=== PATIENT | female | born 1955 | race Caucasian/White ===

== ENCOUNTER 2019-04-06 08:25 | Inpatient (IN) | payer OTHER ==
[~2019-04-06] VITALS: Ht 167.6 cm; Wt 131.5 kg
[2019-04-06 09:06] LABS: Alanine Aminotransfer (ALT/SGP 15 U/L (12-78); Albumin, Blood 3.3 g/dL (3.4-5.0); Albumin/Globulin Ratio 0.9 (0.8-1.8); Alk Phos 121 U/L (50-136); Anion Gap 10 mmol/L (6-16); Aspartate Aminotrans (AST/SGOT 7 U/L (12-37); Bilirubin, Total 0.4 mg/dL (0.1-1.0); Blood Urea Nitrogen 20 mg/dL (8-24); Bun/Creatinine Ratio 20.5 (12.0-20.0); CO2, Blood 25 mmol/L (21-32); Calcium, Blood 8.7 mg/dL (8.5-10.1); Chloride, Blood 104 mmol/L (98-108); Creatinine, Blood 0.98 mg/dL (0.40-1.00); Globulin, Blood 3.7 g/dL (2.2-4.0); Glomerular Filtration Rate >60 (60-); Glucose, Blood 171 mg/dL (70-99); Potassium, Blood 4.1 mmol/L (3.5-5.5); Sodium, Blood 139 mmol/L (136-145); Troponin I 0.057 ng/mL (0.000-0.040)
[2019-04-06 09:07] LABS: BASOPHILS ABSOLUTE AUTO 0.03 K/mm3 (0.00-0.23); BASOPHILS PERCENT AUTO 0 % (0-2); EOSINOPHILS ABSOLUTE AUTO 0.22 K/mm3 (0.00-0.68); EOSINOPHILS PERCENT AUTO 2 % (0-6); Hematocrit 47.4 % (33.0-51.0); Hemoglobin 14.9 g/dL (11.5-16.0); IMMATURE GRAN ABSOLUTE AUTO 0.05 K/mm3 (0.00-0.10); IMMATURE GRAN PERCENT AUTO 0 % (0-1); LYMPHOCYTES ABSOLUTE AUTO 2.23 K/mm3 (0.84-5.20); LYMPHOCYTES PERCENT AUTO 19 % (21-46); MONOCYTES ABSOLUTE AUTO 0.73 K/mm3 (0.16-1.47); MONOCYTES PERCENT AUTO 6 % (4-13); Mean Corpuscular HGB 29.2 pg (26.0-34.0); Mean Corpuscular HGB Conc 31.4 g/dL (31.5-36.5); Mean Corpuscular Volume 93 fL (80-100); Mean Platelet Volume 10.8 fL (9.1-12.4); NEUTROPHILS ABSOLUTE AUTO 8.52 K/mm3 (1.96-9.15); NEUTROPHILS PERCENT AUTO 72 % (41-73); Platelet Count 272 K/mm3 (150-400); RDW Coefficient Variation 13.8 % (11.7-14.2); RDW Standard Deviation 47.5 fL (35.1-46.3); White Blood Cell Count 11.78 K/mm3 (4.00-11.30)
[2019-04-06 09:51] LABS: International Normalized Ratio 0.95; Prothrombin Time Results 10.1 Sec (9.7-11.5)
[2019-04-06] MEDS ORDERED: BUSP10 PO (12:16)
[2019-04-06] MEDS ORDERED: Aspirin EC81 MG PO (12:25)
[2019-04-06] MEDS ORDERED: OLMSRTN-AMLDPN1 EACH PO (12:25)
[2019-04-06] MEDS ORDERED: CYAN500 PO (12:26)
--- NOTE | 2019-04-06 18:20 | NUR ---
SHIFT SUMMARY: ASSUMED CARE OF AT 1325, RECEIVED REPORT FROM VICKIE BROWN RN. PT CAME TO THE UNIT VIA STRETCHER AND AMUBLATED TO THE BED WITH MINIMAL ASSISTANCE. PT WAS ORIENTED TO THE ROOM AND CARE ROUDING WAS EXPLAINED. PT IS ALERT AND ORIENTED X3 AND IS COOPRATIVE. PT HAS BEEN ON TELE AND IS CURRENTLY IN NSR WITH HR IN THE 70'S. PT DENIES ANY CHEST PAIN, DYSPNEA, OR LIGHTHEADEDNESS. WHEN OBTAINING MED REC PT STATED THAT SHE HAD STOP TAKING HER BP MEDICATIONS AT HOME DUE TO FINANCIAL REASONS. PT WAS EDUCATED ON BP MEDICATION USE AND SOCIAL SERVICE CONSULT WILL BE PLACED. PT BLOOD PESSURE INITALLY WAS IN 190'S SBP AND 90'S FOR DBP. PT BP HAS DECREASED TO 170'S SBP AND 80'S FOR DBP. PHYSICAN WAS NOTIFIED AND PRN ORDERS WERE PLACED FOR METOPROLOL. WILL CONTINUE TO MONITOR STATUS UNTIL REPORT IS GIVEN TO ONCOMING SHIFT. BED AT LOWEST LEVEL AND CALL LIGHT IS WITHIN REACH.
--- NOTE | 2019-04-06 18:30 | NUR ---
METOPROLOL Metoprolol IV given to patient for blood pressure. No therapeutic effect noted. Secondary dose not given because pt's HR was low 60s.
--- NOTE | 2019-04-07 06:05 | NUR ---
SHIFT SUMMARY PT IS SLEEPING IN ROOM COMFORTABLY AT THIS TIME. NO ACUTE CHANGES IN STATUS OVERNIGHT. PT DENIED ANY PAIN T/O NIGHT. RESP EVEN UNLABORED ON RA W/ SATS >92%. PT IS INDEPENDENT BUT CALLS TO HAVE SBA D/T SOME DIZZINESS WHEN STANDING. DENIES OTHER NEEDS. CARDIAC CONSULT CALLED IN FOR THIS AM. PT REMAINS CP FREE AND EKG WAS DONE THIS AM. CALL LIGHT IN REACH.
--- NOTE | 2019-04-07 10:22 | NUR ---
BEGINNING OF SHIFT Assumed care at 0700. Bedside report recieved from Magdalena LUIS. Pt on room air. Independent in room. Dr Matthews in to see pt, however pt was in shower. Provider stated he would come back at a later time to see the patient. Update given to provider by Magdalena LUIS. Dr Bradshaw in to see pt this AM. Plans for coronary angiogram today. Pt did not receive breakfast this AM. At time of shift assessment, pt denies chest pain, but displays some shortness of breath. Pt states this is not normal for her. States shortness of breath started "A couple weeks ago". Nitro paste not on patient at time of shift assessment. Nicotine patch placed to left arm and nitro paste applied to right chest wall by this RN. Bed in lowest position. Call light in reach. Pt denies need at this time.
--- NOTE | 2019-04-07 10:35 | NUR ---
Upon receiving a referral for spiritual care, I visited patient. Patient is kind and deeply spiritual and enjoyed the conversation. Patient openly shared about the heart aches and triumphs, about her spiritual background and her family/career history. Patient expressed that she felt anxious about the upcoming angiogram. I listened empathically, provided inspirational materials, quoted appropriate Bible verses, normalized patient's experience and provided prayer. Patient responded well and showed signs of reduced stress. I continue to remain available to patient and family.
--- NOTE | 2019-04-07 16:00 | NUR ---
PATIENT AUTHORIZED HAIRSPRING STAKER TO WATCH PROCEDURE.
--- NOTE | 2019-04-07 16:24 | NUR ---
ATTEMPT TO REACH DR LARA Paged Dr Lara to discuss most recent blood pressure. ICU nurse called to take message for Dr Lara as provider was unavailable.
--- NOTE | 2019-04-07 20:39 | NUR ---
SHIFT SUMMARY After coronary angiogram, pt was hypertensive. New orders received from Dr Bradshaw. Pt medicated per new orders. BP did not improve. Call placed to Dr Bradshaw, new orders given. This RN also notified provider that TR site was painful- instructed to call Dr Melchor. This RN discussed BP and pain with Dr Melchor. New orders given. Pt stated she has had pain in her right wrist that started during procedure. This RN removed 1 mL of air at a time from TR band, for a total of 4 mL. After this, site began to leak. 2 mL of air needed to be placed back in band to stop bleeding. Color, sensation, capillary refill, and distal pulses equal BUE. Leak and assessment of site discussed with Dr Melchor. Orders given for pain meds. Bedside report given to Marbella LUIS who assumed care of pt at 1915.
--- NOTE | 2019-04-07 22:00 | NUR ---
PM NOTE. ASSUMED CARE OF PT APROX 1900, PT IS S/P ANGIO W/STENT PLACEMENT. PT HAS BEEN HYPERTENSIVE SINCE 1600 AND HER RETURN FROM THE [employer]. PT HAS BEEN MEDICATED PER EMAR. RIGHT WRIST SITE AND TR BAND IS INTACT, SMALL AMOUNT OF BLOOD AT THE SITE. WILL SLOWLY DECREASE AIR ABLE. PT C/O OF 8/10 PAIN TO THE SITE. 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 PT'S BP 184/103. PT HAS 1+ PITTING EDEMA TO HER BLLE, PT STATES THIS IS "NEW SINCE THIS ALL STARTED WITH MY HEART THE OTHER DAY." L/S CELAR T/O BUT PT STATES SHE FEELS SOB WHEN SHE LAYS DOWN, THIS IS ALSO NEW TO THE PT. PT IS ON RA WITH O2 SATS >92%. BT PRESENT AND NORMOACTIVE, ABD IS SOFT AND NONTENDER TO PALP. CALL LIGHT IN REACH, BED IS LOCKED AND LOW WILL CONTINUE TO MONITOR.
--- NOTE | 2019-04-08 02:52 | NUR ---
PT UPDATE... TR BAND AIR WAS COMPLETLY REMOVED AT APROX 0100. NO NEW BLEEDING WAS NOTED, PT DENIES PAIN AT THIS TIME. TR BAND WAS LEFT ON THE PT'S WRIST DUE TO THE PT'S REQUEST TO BE ALLOWED TO SLEEP. AT 0149 PT HAD A 3 SECOND PAUSE, PT WAS ASLEEP AND WAS NOT SYMPTOMATIC. PT HAS NOT HAD THIS EVENT BEFORE SINCE BEING ON TELE. PT'S BP HAS IMPROVED, CURRENT BP IS 157/79. PT'S RATE HAS DIPPED DOWN INTO THE 40'S BUT MAINTAINS HIGH 50'S-60'S MOST OF THE TIME. WILL CONTINUE TO MONITOR.
[2019-04-08 04:11] LABS: BASOPHILS ABSOLUTE AUTO 0.04 K/mm3 (0.00-0.23); BASOPHILS PERCENT AUTO 0 % (0-2); EOSINOPHILS ABSOLUTE AUTO 0.25 K/mm3 (0.00-0.68); EOSINOPHILS PERCENT AUTO 2 % (0-6); Hematocrit 44.7 % (33.0-51.0); Hemoglobin 14.1 g/dL (11.5-16.0); IMMATURE GRAN ABSOLUTE AUTO 0.07 K/mm3 (0.00-0.10); IMMATURE GRAN PERCENT AUTO 1 % (0-1); LYMPHOCYTES ABSOLUTE AUTO 1.92 K/mm3 (0.84-5.20); LYMPHOCYTES PERCENT AUTO 16 % (21-46); MONOCYTES ABSOLUTE AUTO 0.87 K/mm3 (0.16-1.47); MONOCYTES PERCENT AUTO 7 % (4-13); Mean Corpuscular HGB 29.4 pg (26.0-34.0); Mean Corpuscular HGB Conc 31.5 g/dL (31.5-36.5); Mean Corpuscular Volume 93 fL (80-100); Mean Platelet Volume 10.4 fL (9.1-12.4); NEUTROPHILS ABSOLUTE AUTO 8.94 K/mm3 (1.96-9.15); NEUTROPHILS PERCENT AUTO 74 % (41-73); Platelet Count 283 K/mm3 (150-400); RDW Coefficient Variation 13.8 % (11.7-14.2); RDW Standard Deviation 47.5 fL (35.1-46.3); Red Blood Cell Count 4.79 M/mm3 (3.80-5.20); White Blood Cell Count 12.09 K/mm3 (4.00-11.30)
[2019-04-08 04:36] LABS: Anion Gap 8 mmol/L (6-16); Blood Urea Nitrogen 19 mg/dL (8-24); Bun/Creatinine Ratio 18.6 (12.0-20.0); CHOL/HDL RATIO 4.9; CO2, Blood 27 mmol/L (21-32); Calcium, Blood 8.8 mg/dL (8.5-10.1); Chloride, Blood 103 mmol/L (98-108); Cholesterol 202 mg/dL (50-200); Creatinine, Blood 1.02 mg/dL (0.40-1.00); Glomerular Filtration Rate 58 (60-); Glucose, Blood 161 mg/dL (70-99); HDL Cholesterol 41 mg/dL (>39); LDL/HDL RATIO 3.3; Low Density Lipoprotein Chol 134 mg/dL (0-110); Potassium, Blood 4.2 mmol/L (3.5-5.5); Sodium, Blood 138 mmol/L (136-145); Triglycerides 137 mg/dL (30-160); Very Low Density Lipoprot Chol 27 mg/dL (6-32)
--- NOTE | 2019-04-08 05:33 | NUR ---
SHIFT SUMMARY. NO ACUTE CHANGES NOTED SINCE PREVIOUS NOTE. PT DENIES ANY CHEST PAIN/PRESSURE, N/V OR ABNORMAL SOB. PT STATES SHE STILL CANNOT LAY FLAT W/O FEELING SOB. TR BAND WAS REMOVED, THE AREA WAS CLEANED AND TEGADERM WAS PLACED OVER THE SITE. PT WAS EDUCATED ON SITE CARE. PT WAS TOLD ABOUT THE 3.5 SECOND PAUSE THAT WAS CAUGHT ON TELE AND THE POSSIBLE CAUSES, INCLUDING SLEEP APNEA, PT STATED SHE HAS BEEN TOLD BY OTHERS THAT SHE DOES STOP BREATHING IN HER SLEEP, PT STATES THAT SHE HAS HAD "TOO MUCH STUFF GOING ON TO STOP AND DEAL WITH THAT TOO." PT WAS ENCOURAGED TO FOLLOW UP WITH PCP AND EXPLORE THIS ISSUE MORE WITH THEM, PT WAS EDCUATED ON HOW SLEEP APENA CAN CAUSE HEART DAMAGE, AND . PT STATED HER UNDERTSTANDING. CALL LIGHT IN REACH, BED IS LOCKED AND LOW WILL CONTINUE TO MONITOR UNTIL REPORT IS GIVEN TO ONCOMING RN.
--- NOTE | 2019-04-08 18:26 | NUR ---
SHIFT SUMMARY PT ALERT AND ORIENTED. O2 SATS >90% ON RA. HR NSR WITH A RATE 50-60'S. BP ELEVATED THROUGHOUT SHIFT. DR. LARA IN TO CHANGE BP MEDICATIONS. PT DENIES ANY PAIN. RIGHT RADIAL ACCESS SITE UNCHAGED SINCE INITIAL ASSESSMENT IS FREE FROM BLEEDING, HEMATOMA OR BRUISING. ARM BOARD IN PLACE AND PT EDUCATED ABOUT RESTRICTIONS. PT INDEPENDENT IN ROOM. WILL CONTINUE TO MONITOR AND REPORT TO ONCOMING RN. CALL LIGHT IN REACH.
[2019-04-09 04:25] LABS: Bun/Creatinine Ratio 19.4 (12.0-20.0); Calcium, Blood 8.8 mg/dL (8.5-10.1); Creatinine, Blood 1.29 mg/dL (0.40-1.00); Potassium, Blood 4.2 mmol/L (3.5-5.5)
--- NOTE | 2019-04-09 05:47 | NUR ---
SHIFT SUMMARY NO ACUTE CHANGES THIS SHIFT. BLOOD PRESSURE IMPROVED THROUGHOUT THE NIGHT, 115/72 THIS AM. NO PRN MEDICATIONS GIVEN. PT DENIED PAIN, SLEPT WELL THROUGHOUT THE NIGHT. PT DID GET ONE DOSE OF 0.5 MG IV ATIVAN FOR ANXIETY AND SLEEP. NO CHANGES TO R RADIAL SITE. PT LEFT ARMBOARD ON FOR MUCH OF THE NIGHT. PT RESTING IN BED AT THIS TIME. CALL LIGHT WITHIN REACH.
[2019-04-09] MEDS ORDERED: ACET325 PO (09:37)
[2019-04-09] MEDS ORDERED: LO-DOSE ASPIRIN81 MG PO (09:38)
[2019-04-09] MEDS ORDERED: CLOP75 PO (09:45)
[2019-04-09] MEDS ORDERED: ATOR40TA PO (09:45)
[2019-04-09] MEDS ORDERED: HYDCHL25 PO (09:46)
[2019-04-09] MEDS ORDERED: LOSA50 PO (09:47)
[2019-04-09] MEDS ORDERED: METO50 PO (09:48)
[2019-04-09] MEDS ORDERED: NITR.4SL SL (09:50)
--- NOTE | 2019-04-09 12:01 | NUR ---
UPDATE PT ALERT AND ORIENTED. VS STABLE. PT DENIES ANY PAIN. NEW ORDERS FOR DISCHARGE. MEDICATIONS FAXED TO [facility]. DISCHARGE INSTRUCTIONS PROVIDED. EDUCATION ABOUT NEW MEDICATION PROVIDED. ALL QUESTIONS ANSWERED. PT SIGNED [employer] CONTRACT. IV REMOVED AND INTACT. ALL BELONGINGS COLLECTED. PT AWAITING RIDE.
--- NOTE | 2019-04-09 12:40 | NUR ---
PT TAKEN OUT BY WHEELCHAIR.
== END 2019-04-09 12:25 | disposition home or self-care (01) | DRG 280 ==
LOC: ER 08:25 → PCU 08:26 → ER 08:26 → PCU 13:33
PROVIDERS: Emergency Medicine; Internal Medicine Cardiovascular Disease; ADMIT Family Medicine
PROC: B2111ZZ Fluoroscopy of Multiple Coronary Arteries using Low Osmolar Contrast (ICD-10-PCS; principal; 2019-04-07)
PROC: 4A023N7 Measurement of Cardiac Sampling and Pressure, Left Heart, Percutaneous Approach (ICD-10-PCS; 2019-04-07)
PROC: 4A033BC Measurement of Arterial Pressure, Coronary, Percutaneous Approach (ICD-10-PCS; 2019-04-07)
DX: I21.4 Non-ST elevation (NSTEMI) myocardial infarction (principal); I50.33 Acute on chronic diastolic (congestive) heart failure; Z68.42 Body mass index [BMI] 45.0-49.9, adult; I16.1 Hypertensive emergency; J98.11 Atelectasis; M19.90 Unspecified osteoarthritis, unspecified site; E66.01 Morbid (severe) obesity due to excess calories; Z79.82 Long term (current) use of aspirin; F41.9 Anxiety disorder, unspecified; E78.5 Hyperlipidemia, unspecified; F41.8 Other specified anxiety disorders; F17.210 Nicotine dependence, cigarettes, uncomplicated; Z91.14 Patient's other noncompliance with medication regimen; E78.00 Pure hypercholesterolemia, unspecified; R00.1 Bradycardia, unspecified; I11.0 Hypertensive heart disease with heart failure; Z79.02 Long term (current) use of antithrombotics/antiplatelets
CPT/HCPCS: 36415; 71045; 71046; 71260; 80048; 80053; 80061; 83880; 84443; 84484; 85025; 85379; 85610; 85730; 93005; 93010; 93306; 93458; 93571; 96374; 99152; 99153; 99285-25; C1725; C1769; C1874; C1887; C1894; C9600; J0360; J1644; J1940; J2060; J2250; J3010; J7030; Q9967

== ENCOUNTER → 2019-09-14 | Outpatient (CLI) | payer OTHER ==
[~2019-09-14] MED LIST: ACET325 PO; ATOR40TA PO; Aspirin EC81 MG PO; BUSP10 PO; CLOP75 PO; CYAN500 PO; HYDCHL25 PO; LO-DOSE ASPIRIN81 MG PO; LOSA50 PO; METO50 PO; NITR.4SL SL; OLMSRTN-AMLDPN1 EACH PO
== END | disposition home or self-care (01) ==
LOC: LAB SHORT 07:30 → LAB 07:30
DX: D48.5 Neoplasm of uncertain behavior of skin (principal)
CPT/HCPCS: 88305

== ENCOUNTER 2021-04-22 17:41 | Emergency (ER) | payer MEDICARE, OTHER ==
[~2021-04-22] VITALS: Ht 167.6 cm; Wt 136.1 kg
[2021-04-22 21:08] LABS: Base Excess Venous 0.1 mmol/L; Bicarbonate Venous 24.3 mmol/L (24.0-30.0); PCO2 Venous 41.5 mmHg (38-42); PO2 Venous 69.5 mmHg (38-42); pH Blood Venous 7.39 (7.34-7.37)
[2021-04-22] MEDS ORDERED: CEPH500 PO (21:22)
== END 2021-04-22 22:01 | disposition home or self-care (01) ==
LOC: ER 17:41
PROVIDERS: Physician Assistant
DX: E11.65 Type 2 diabetes mellitus with hyperglycemia (principal); I10 Essential (primary) hypertension; F17.200 Nicotine dependence, unspecified, uncomplicated; Z79.899 Other long term (current) drug therapy; Z91.14 Patient's other noncompliance with medication regimen; Z79.02 Long term (current) use of antithrombotics/antiplatelets; Z79.82 Long term (current) use of aspirin
CPT/HCPCS: 36415; 70450; 80053; 81001; 82140; 82803; 82947; 83036; 84100; 85007; 85025; 85027; 85651; 87077; 87086; 87186; 96360; 99284-25; A9270; J7030

== ENCOUNTER → 2022-03-01 | Outpatient (CLI) | payer MEDICARE, OTHER ==
[~2022-03-01] MED LIST changes: +CEPH500 PO
== END | disposition home or self-care (01) ==
LOC: LAB SHORT 15:57 → LAB 15:57
DX: B35.1 Tinea unguium (principal)
CPT/HCPCS: 87102